=== PATIENT | female | born 1995 | race Caucasian/White ===

== ENCOUNTER → 2016-10-25 | Outpatient (CLI) | payer OTHER ==
[~2016-10-25] MED LIST: CATHETER FLUSH 10 ML SYR IV PRN; IOHEXOL 350 MG/ML 100 ML (OMNIPAQUE 350) VIAL IV ONE; NS 100 ML (IVPB) BAG IV ONE
--- NOTE | 2016-10-25 14:10 | Diagnostic Imaging Report ---
PROCEDURE: CT head with and without contrast. TECHNIQUE: Multiple contiguous axial images were obtained through the brain before and after the administration of intravenous contrast. INDICATION: Headache. COMPARISON: None. FINDINGS: The ventricles and cortical sulci are normal in size and contour. Postcontrast images show no abnormal areas of enhancement. There is no midline shift or mass-effect. No acute intra-axial hemorrhage is seen. There are no abnormal areas of increased or decreased density to suggest acute hemorrhage or edema. No extra-axial masses or collections are present. The bony calvarium is intact. The visualized paranasal sinuses are unremarkable. The mastoid air cells are clear. IMPRESSION: 1. No acute intracranial abnormality. No CT evidence of mass, acute infarct or intracranial hemorrhage. Dictated by: Dictated on workstation # [id number]
== END ==
LOC: RAD 13:11
PROVIDERS: ATTEND Nurse Practitioner Family
DX: R51 Headache (principal)
CPT/HCPCS: 70470

== ENCOUNTER 2018-05-18 15:11 | Emergency (ER) | payer OTHER ==
[~2018-05-18] VITALS: Ht 160 cm; Wt 79.4 kg
[2018-05-18 15:33] LABS: BILIRUBIN,URINE NEGATIVE (NEGATIVE); CLARITY,URINE CLEAR; COLOR,URINE YELLOW; GLUCOSE, URINE (UA) NEGATIVE (NEGATIVE); KETONES,URINE NEGATIVE (NEGATIVE); LEUKOCYTE ESTERASE ,URINE NEGATIVE (NEGATIVE); NITRITE,URINE NEGATIVE (NEGATIVE); PH,URINE 7 (5-9); PROTEIN,URINE NEGATIVE (NEGATIVE); UROBILINOGEN,URINE NORMAL (NORMAL)
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
[2018-05-18 15:39] LABS: BACTERIA,URINE NEGATIVE /HPF; SQUAMOUS EPITHELIAL CELL,UR 0-2 /HPF
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
[2018-05-18] MEDS ORDERED: ACETAMINOPHEN 500 MG TAB (TYLENOL) PO STA (16:37)
[2018-05-18] MEDS ORDERED: IBUPROFEN 800 MG (MOTRIN) TAB PO STA (16:37)
[2018-05-18] MEDS ORDERED: ALPRAZolam 0.25 MG (XANAX) TAB PO ONE (16:45)
[2018-05-18] MEDS ORDERED: CYCL10TA9 PO (16:48)
[2018-05-18 17:00] VITALS: BP 127/76
== END 2018-05-18 17:00 | disposition home or self-care (01) ==
LOC: EDUNIT# 15:11 → ER 15:13
DX: S09.90XA Unspecified injury of head, initial encounter (principal); F41.9 Anxiety disorder, unspecified; R40.2142 Coma scale, eyes open, spontaneous, at arrival to emergency department; R40.2252 Coma scale, best verbal response, oriented, at arrival to emergency department; R40.2362 Coma scale, best motor response, obeys commands, at arrival to emergency department; V43.52XA Car driver injured in collision with other type car in traffic accident, initial encounter
CPT/HCPCS: 70450; 72125; 81000; 84703